=== PATIENT | female | born 1970 | race American Indian/Alaskan Native ===

== ENCOUNTER 2017-04-04 20:41 | Emergency (ER) | payer MEDICARE ==
[2017-04-04 22:03] LABS: Basophils % (Auto) 0.8 % (0.0-1.8); Eosinophils % (Auto) 1.5 % (0.0-4.3); Hematocrit 36.6 % (30.3-42.9); Hemoglobin 12.3 gm/dl (10.1-14.3); Mean Corpuscular HGB Conc 34 % (30-34); Mean Corpuscular Hemoglobin 29 pg (28-32); Mean Corpuscular Volume 86 fl (79-97); Platelet Count 284 K/mm3 (140-440); Red Blood Count 4.28 M/mm3 (3.65-5.03); Red Cell Distribution Width 14.5 % (13.2-15.2); White Blood Count 10.7 K/mm3 (4.5-11.0)
[2017-04-04 22:22] LABS: Anion Gap 17 mmol/L; BUN/Creatinine Ratio 15.55; Blood Urea Nitrogen 14 mg/dL (7-17); Calcium 9.2 mg/dL (8.4-10.2); Carbon Dioxide 25 mmol/L (22-30); Chloride 101.8 mmol/L (98-107); Glucose 101 mg/dL (65-100); Potassium 3.9 mmol/L (3.6-5.0); Sodium 140 mmol/L (137-145)
[2017-04-04] MEDS ORDERED: NORCO 5/325 PO ONE (23:16)
[2017-04-04] MEDS ORDERED: DELTASONE PO ONE (23:16)
[2017-04-04] MEDS ORDERED: CATAPRES PO ONE (23:18)
--- NOTE | 2017-04-04 23:18 | Emergency Department Report ---
HPI - General Chief Complaint: Recheck/Abnormal Lab/Rx Time Seen by Provider: 04/04/17 23:16 - HPI HPI: The patient is a 46-year-old female presents for evaluation of diffuse arthralgias. She reports a history of lupus. She complains of joint pain in the hands and knees bilaterally. She states that her pain has been present for the past 3 days, constant, 10/10 in severity, exacerbated with use of the hands or weightbearing on the knees, aching in quality. She states that her symptoms are consistent with previous episodes of pain. She denies fever, trauma to the hands and knees, redness, swelling, color change, paresthesias, or motor deficit in the hands or legs bilaterally. ED Past Medical Hx - Past Medical History Previous Medical History?: Yes Hx Hypertension: Yes Hx CVA: Yes Hx Deep Vein Thrombosis: Yes Hx Pulmonary Embolism: Yes Hx Asthma: Yes Additional medical history: LUPUS. ANEMIA - Surgical History Past Surgical History?: Yes Additional Surgical History: PARTIAL HYSTERECTOMY. LAP SURGERIES - Social History Smoking Status: Never Smoker Substance Use Type: None - Medications Home Medications: Home Medications Medication Instructions Recorded Confirmed Last Taken Type Albuterol Sulfate [Ventolin HFA] 2 puff IH Q4H PRN 07/21/15 07/21/15 07/21/15 History Clopidogrel [Plavix] 75 mg PO QDAY 07/21/15 07/21/15 07/21/15 History Fluticasone Furoate [Veramyst 2 spray NS DAILY 07/21/15 07/21/15 07/21/15 History NASAL 27.5 MCG/SPRAY] Fluticasone [Flonase] 1 spray NS QDAY 07/21/15 07/21/15 07/21/15 History HYDROcodone/APAP 7.5-325 [[place] 1 each PO Q8HR PRN #20 tablet 07/21/15 Unknown Rx 7.5/325] Hydroxychloroquine [Plaquenil] 200 mg PO BID 07/21/15 07/21/15 07/21/15 History Losartan/Hydrochlorothiazide 1 tab PO QDAY 07/21/15 07/21/15 07/21/15 History [Hyzaar 100-25 TAB] Morphine [Morphine TAB] 25 mg TP QDAY 01/06/16 01/06/16 01/06/16 History Prasugrel [Effient] 10 mg PO QDAY 07/21/15 07/21/15 07/21/15 History Tiotropium [Spiriva] 18 mcg IH QDAY 07/21/15 07/21/15 07/21/15 History HYDROcodone/APAP 7.5-325 [[place] 1 each PO Q8HR PRN #10 tablet 04/05/17 Unknown Rx 7.5-325 mg TAB] Ibuprofen [Motrin] 800 mg PO Q8HR PRN #15 tablet 04/05/17 Unknown Rx amLODIPine [Norvasc] 5 mg PO DAILY #31 tab 04/05/17 Unknown Rx predniSONE [Deltasone] 20 mg PO QDAY #5 tab 04/05/17 Unknown Rx ED Review of Systems ROS: Stated complaint: MED R/F Other details as noted in HPI Constitutional: denies: fever ENT: denies: throat or neck pain Respiratory: denies: cough, shortness of breath Cardiovascular: denies: chest pain Endocrine: denies unexplained weight loss or gain Gastrointestinal: denies: abdominal pain, nausea Genitourinary: denies: dysuria Musculoskeletal: reports arthralgias denies: leg swelling Skin: denies: rash Neurological: denies: headache Hematological/Lymphatic: denies: easy bleeding or easy bruising Psych: denies sadness or hopelessness Physical Exam - Physical Exam Vital Signs: Vital Signs 04/04/17 04/04/17 21:38 21:47 Temperature 97.9 F 97.9 F Pulse Rate 92 H 90 Respiratory 18 18 Rate Blood Pressure 182/115 182/115 O2 Sat by Pulse 99 100 Oximetry Physical Exam: General: well-nourished, well-developed, no acute distress Head: Normocephalic, atraumatic Eyes: normal sclera ENT: Mucous membranes are pink and moist Neck: trachea midline, neck supple, No neck stiffness, no cervical adenopathy Respiratory: Breath sounds equal bilaterally, no wheezing, rales, or rhonchi Cardio: S1 and S2 present, no murmurs, rubs, gallops, capillary refill is brisk Abdomen: Normoactive bowel sounds, soft abdomen, no tenderness Musc: Tenderness to palpation present to dorsal MCP joings of digits 1 through 5 bilaterally, medial and lateral joint line tenderness to palpation of the knees bilaterally, there is no deformity, redness, swelling, warmth, fluctuance , or color change to the hands or knees bilaterally, sensation, motor function of the digits and knees bilaterally intact Skin: No rash Neuro: no facial drooping, normal speech Psych: Normal affect ED Course Vital Signs 04/04/17 04/04/17 21:38 21:47 Temperature 97.9 F 97.9 F Pulse Rate 92 H 90 Respiratory 18 18 Rate Blood Pressure 182/115 182/115 O2 Sat by Pulse 99 100 Oximetry ED Medical Decision Making - Lab Data Result diagrams: 04/04/17 21:53 04/04/17 21:53 - Medical Decision Making The patient was seen and examined by myself. The patient is placed on a quality assurance monitor chassis and continuous pulse ox. On initial evaluation, the patient was found to be in no distress. Evaluation orders were placed. Patient given a tablet of clonidine for elevated blood pressure. She is given a tablet of prednisone for treatment of her lupus and a tab of [place] for her pain. The patient was reevaluated and reported that their symptoms were markedly improved. On reexamination she is found to have persistence of elevated blood pressure. She refuses further treatment of her blood pressure. She is counseled regarding risk of refusal of lowering of her blood pressure further and benefits of treatment. She is competent and able to voice options of treatment and risks of refusing treatment. The patient signs out AGAINST MEDICAL ADVICE. Critical care attestation.: If time is entered above; I have spent that time in minutes in the direct care of this critically ill patient, excluding procedure time. ED Disposition Clinical Impression: Lupus arthritis, Bilateral hand pain, Acute bilateral knee pain, Hypertensive urgency Disposition: [id number] LEFT AGAINST MED ADVICE Is pt being admited?: No Does the pt Need Aspirin: No Condition: Stable Instructions: Musculoskeletal Pain (ED), Hypertension (ED), Arthralgia (ED) Additional Instructions: Do not take more than the prescribed dose of norco/pain medicine, or combine or take the pain medicine prescribed to you today with other pain medicine, sleeping medicine or other sedatives, or with alcohol, as doing so may cause central nervous system sedation and respiratory depression, and potentially cause you to stop breathing and . Additionally, do not drive a vehicle, operate heavy machinery, or engage in any activity that would cause harm to yourself or others after taking the pain medicine prescribed to you. Prescriptions: amLODIPine [Norvasc] 5 mg PO DAILY #31 tab HYDROcodone/APAP 7.5-325 [[place] 7.5-325 mg TAB] 1 each PO Q8HR PRN #10 tablet PRN Reason: Pain Ibuprofen [Motrin] 800 mg PO Q8HR PRN #15 tablet PRN Reason: Pain predniSONE [Deltasone] 20 mg PO QDAY #5 tab Referrals: PRIMARY CARE, [Primary Care Provider] - 3-5 Days Time of Disposition: 23:17
[2017-04-04 23:58] VITALS: BP 162/113
== END 2017-04-05 00:14 | disposition left against medical advice (07) ==
LOC: ED 20:41
DX: M32.9 Systemic lupus erythematosus, unspecified (principal); M25.541 Pain in joints of right hand; M25.542 Pain in joints of left hand; M25.561 Pain in right knee; M25.562 Pain in left knee; I10 Essential (primary) hypertension; I63.9 Cerebral infarction, unspecified; I82.409 Acute embolism and thrombosis of unspecified deep veins of unspecified lower extremity; J45.909 Unspecified asthma, uncomplicated; D64.9 Anemia, unspecified
CPT/HCPCS: 36415; 80048; 85025; 99284; J7512